=== PATIENT | female | born 1950 | race Caucasian/White ===

== ENCOUNTER 2017-10-24 15:42 | Emergency (ER) | payer MEDICARE, OTHER ==
[~2017-10-24] VITALS: Ht 165.1 cm; Wt 84.4 kg
[~2017-10-24 15:42] MED LIST: DIOVAN HCT 1601 EACH PO; LEVOFLOXACIN500 MG PO; METHYLPREDNISOLO4 MG PO; PROAIR HFA INH8.5 GM INH; SPIRIVA18 MCG INH
--- NOTE | 2017-10-24 17:12 | Diagnostic Imaging Report ---
PROCEDURE:X-RAY UNILATERAL RIBS WITH CHEST X-RAY COMPARISON:None. INDICATIONS:left mid rib pain friday, felt" pop" FINDINGS: BONES Normal mineralization. No acute , displaced fracture or dislocation. No lytic or expansile lesions. SOFT TISSUES:Negative. OTHER:Clear lungs. Cardiomediastinal silhouette is unremarkable. Right-sided catheter with distal tip projecting in the proximal SVC. CONCLUSION: No acute abnormalities. Jeb Zaidi M.D. Dictated by: Jeb Zaidi M.D. on 10/24/2017 at 17:16 Electronically approved by: Jeb Zaidi M.D. on 10/24/2017 at 17:16
[2017-10-24] MEDS ORDERED: KETOROLAC TROMETHAMINE 60 MG/2 ML VIAL IM ONE (17:45)
[2017-10-24 18:14] VITALS: BP 147/99
== END 2017-10-24 18:27 | disposition home or self-care (01) ==
LOC: ER 15:42
DX: R07.89 Other chest pain (principal); S29.011A Strain of muscle and tendon of front wall of thorax, initial encounter; X50.1XXA Overexertion from prolonged static or awkward postures, initial encounter; Y92.008 Other place in unspecified non-institutional (private) residence as the place of occurrence of the external cause; I10 Essential (primary) hypertension; J44.9 Chronic obstructive pulmonary disease, unspecified; J45.909 Unspecified asthma, uncomplicated
CPT/HCPCS: 71101; 99283; J1885

== ENCOUNTER 2018-12-17 14:34 | Emergency (ER) | payer MEDICARE ==
[~2018-12-17] VITALS: Ht 165.1 cm; Wt 84.4 kg
--- OUTSIDE RECORDS SUMMARY | 2018-12-17 14:37 | XMS REPORT | Clinical Summary ---
Author Author SEAN [facility]netSt[facility] CenterEc[facility] CenterLessonFaceSam[facility] Address Unknown Phone Unavailable Care Team Providers Care Cricket Coach Name Role Phone Jaime Kennedy PCP Unavailable Allergies No Known Allergies Medications End Date Status Medication Sig Dispensed Refills Start Date Active ALBUTEROL INHL Inhale 1 puff 0 by mouth via inhaler 2 (two) times daily Dose unknown per patient.. Active ergocalciferol (VITAMIN Take 50,000 0 D2) 50,000 unit capsule Units by mouth once a week. Active fluticasone (FLONASE) 50 1 spray by 0 mcg/actuation nasal spray Nasal route daily. Active mometasone-formoterol Inhale 1 puff 0 (DULERA) 200-5 by mouth via mcg/actuation inhaler inhaler 2 (two) times daily. Active TIOTROPIUM BROMIDE Inhale by 0 (SPIRIVA RESPIMAT INHL) mouth via inhaler daily Dose unknown per patient.. Active valsartan-hydrochlorothia Take 1 tablet 0 zide (DIOVAN-HCT) by mouth 160-12.5 mg per tablet daily. Active FEXOFENADINE HCL (RUTH Take 1 tablet 0 ORAL) by mouth daily Dose unknown per patient. . Active [id number] Inject 5,220 0 INHIBITOR (ZEMAIRA IV) mg intravenously once a week Takes every week on . Dose and frequency confirmed and verified with the patient. . Active Problems Problem Noted Date Difficult intravenous access 09/24/2016 Social History Date Tobacco Use Types Packs/Day Years Used Former Smoker Smokeless Tobacco: Never Used Comments: quit smoking 2012 Alcohol Use Drinks/Week oz/Week Comments Yes very rare Sex Assigned at Date Recorded Not on file Industry Job Start Date Occupation Not on file Not on file Not on file Travel End Travel History Travel Start No recent travel history available. Last Filed Vital Signs Not on file Plan of Treatment Not on file Implants Device Identifier Shelf Expiration Date Model / Serial / Lot Implanted Type Area Manufactur er 09/01/2020 [id number] / / [id number] Port Kt Sl Mri X-Prt 8fr Plas Catheter Right: Chest CR [id number] - [id number] Ports/Cent BARD:ACCES Implanted: Qty: 1 on 09/24/2016 by Adelaide Tyson MD Results Not on fileafter 12/16/2017 Insurance Payer Benefit Subscriber ID Type Phone Address Plan / Group [facility] x[facility] MEDICARE ADV Advance Directives For more information, please contact: [facility] [address] [place] [address] Date Inactivated Comments Code Status Date Activated 09/24/2016 1:24 PM Full Code 09/24/2016 8:28 AM This code status was determined by: Patient
[2018-12-17] MEDS ORDERED: SODIUM CHLORIDE 0.9% 1000ML 1,000 ML IV SCH (15:15)
[2018-12-17] MEDS ORDERED: ONDANSETRON HCL INJ 2MG/ML 2ML 2 MG/ML VIAL IV NR (15:30)
[2018-12-17 15:45] LABS: BASOPHILS % 0.8 % (0.0-1.0); EOSINOPHILS # (AUTO) 0.1 (0.0-0.4); EOSINOPHILS % 1.6 % (0.0-6.0); HEMATOCRIT 40.2 % (34.2-44.1); HEMOGLOBIN 13.6 g/dL (12.0-16.0); LYMPHOCYTES # (AUTO) 1.2 (1.0-3.2); LYMPHOCYTES % 24.1 % (18.0-39.1); MEAN CORPUSCULAR HEMOGLOBIN 32.2 pg (28-32); MEAN CORPUSCULAR HGB CONC 33.8 g/dL (31-35); MONOCYTES # (AUTO) 0.4 (0.2-0.8); MONOCYTES % 7.3 % (4.4-11.3); NEUTROPHILS # (AUTO) 3.3 (2.1-6.9); PLATELET COUNT 186 x10e3/uL (140-360); RED BLOOD COUNT 4.23 x10e6/uL (3.6-5.1); RED CELL DISTRIBUTION WIDTH 12.2 % (11.7-14.4)
[2018-12-17 15:58] LABS: ALANINE AMINOTRANSFERASE 9 IU/L (0-55); ALBUMIN 3.3 g/dL (3.5-5.0); ALBUMIN/GLOBULIN RATIO 1.1 (0.8-2.0); ALKALINE PHOSPHATASE 44 IU/L (40-150); ANION GAP 10.8 mmol/L (8-16); BLOOD UREA NITROGEN 21 mg/dL (7-26); BUN/CREATININE RATIO 25 (6-25); CALCIUM 9.2 mg/dL (8.4-10.2); CARBON DIOXIDE 28 mmol/L (22-29); CHLORIDE 102 mmol/L (98-107); CREATINE KINASE 53 IU/L (29-168); CREATININE, SERUM 0.85 mg/dL (0.57-1.11); EST GLOMERULAR FILTRATION RATE > 60 ML/MIN (60-); GLUCOSE 123 mg/dL (74-118); POTASSIUM 3.8 mmol/L (3.5-5.1); SODIUM 137 mmol/L (136-145)
[2018-12-17 16:33] LABS: BILIRUBIN,URINE NEGATIVE (NEGATIVE); CLARITY,URINE CLEAR (CLEAR); COLOR,URINE YELLOW (YELLOW); KETONES,URINE NEGATIVE (NEGATIVE); LEUKOCYTE ESTERASE ,URINE NEGATIVE (NEGATIVE); NITRITE,URINE NEGATIVE (NEGATIVE); PROTEIN,URINE DIPSTICK NEGATIVE (NEGATIVE); URINE UROBILINOGEN 0.2 mg/dL (0.2 - 1)
[2018-12-17 16:49] LABS: EPITHELIAL CELLS,URINE RARE /LPF
--- NOTE | 2018-12-17 17:42 | Diagnostic Imaging Report ---
CT of the abdomen and pelvis, with contrast, 12/17/2018. History: Mid abdominal pain. Comparison: None available. Technique: Multidetector CT scanning of the abdomen and pelvis was performed from the level of the lung bases to the inferior pubic rami after intravenous administration of contrast. Oral contrast was not given. Coronal and sagittal multiplanar reformations were obtained. RADIATION DOSE: Total DLP: 468 mGy*cm Dose modulation, iterative reconstruction, and/or weight based adjustment of the mA/kV was utilized to reduce the radiation dose to as low as reasonably achievable. Discussion: LUNG BASES: There is bibasilar scarring and emphysema. ABDOMEN: The gallbladder is absent. The liver, biliary tree, spleen, pancreas, adrenal glands, and kidneys are normal. The hepatic vein, portal vein, and splenic vein are patent. The abdominal aorta is within normal limits for size. Evaluation of bowel is limited without oral contrast. There is no bowel dilatation. There is no evidence of adenopathy or free fluid. PELVIS: The bladder is unremarkable. The uterus and adnexa are absent. There is no evidence of free fluid or adenopathy. Sutures present within the anterior abdominal wall. BONES AND SOFT TISSUES: Degenerative changes are present throughout the lumbar spine without evidence of lytic or sclerotic lesion. Mild anterior wedge deformity of T12 is noted, described on prior CT report from 05/08/2013, images were not available. IMPRESSION: No acute findings. Status post cholecystectomy and hysterectomy. Bibasilar emphysema and scarring are noted. Signed by: Erick Harrington on 12/17/2018 5:39 PM
[2018-12-17 18:05] VITALS: BP 128/77
[2018-12-17] MEDS ORDERED: SODIUM CHLORIDE 0.9% 50ML 50 ML ONE (21:37)
[2018-12-17] MEDS ORDERED: IOPAMIDOL 370 MG/ML 200 ML INFUS..BTL INJ ONE (21:37)
== END 2018-12-17 18:11 | disposition home or self-care (01) ==
LOC: ER 14:34
DX: R10.84 Generalized abdominal pain (principal); R11.2 Nausea with vomiting, unspecified; R19.7 Diarrhea, unspecified; I10 Essential (primary) hypertension; E11.9 Type 2 diabetes mellitus without complications; J44.9 Chronic obstructive pulmonary disease, unspecified
CPT/HCPCS: 36415; 74177; 80053; 81001; 82550; 82553; 83690; 84484; 85025; 93005; 99284; Q9967

== ENCOUNTER 2019-01-15 17:25 | Emergency (ER) | payer MEDICARE ==
[~2019-01-15] VITALS: Ht 165.1 cm; Wt 84.4 kg
--- OUTSIDE RECORDS SUMMARY | 2019-01-15 17:28 | XMS REPORT | Clinical Summary ---
Author Author SEAN GigaFin NetworksSt. [facility] FruitlandCloudVelocity [facility] CenterAperion BiologicsSkag[facility] Address Unknown Phone Unavailable Care Team Providers [facility] Consultant Name Role Phone Jaime Kennedy PCP Unavailable [...] daily Dose unknown per patient. . Active [id number] Inject 5,220 0 INHIBITOR (ZEMAIRA IV) mg [...] Lot Implanted Type Area Manufactur er 09/01/2020 [id number] / / [id number] Port Kt Sl Mri X-Prt 8fr Plas Catheter Right: Chest CR [id number] - [id number] Ports/Cent BARD:ACCES Implanted: Qty: 1 on 09/24/2016 by Adelaide Tyson MD Results Not on fileafter 01/14/2018 Insurance Payer Benefit Subscriber ID Type Phone Address Plan / Group [facility] x[facility]xx MEDICARE ADV Advance Directives For more information, please contact: [facility] [address] [place] [address] Date Inactivated Comments Code Status Date Activated 09/24/2016 1:24 PM Full Code 09/24/2016 8:28 AM This code status was determined by: Patient
[2019-01-15] MEDS ORDERED: SODIUM CHLORIDE 0.9% 1000ML 1,000 ML IV STA (17:36)
[2019-01-15 18:01] LABS: BASOPHILS # (AUTO) 0.1 (0.0-0.1); EOSINOPHILS # (AUTO) 0.1 (0.0-0.4); EOSINOPHILS % 1.9 % (0.0-6.0); HEMATOCRIT 42.4 % (34.2-44.1); HEMOGLOBIN 14.8 g/dL (12.0-16.0); LYMPHOCYTES # (AUTO) 1.7 (1.0-3.2); LYMPHOCYTES % 27.7 % (18.0-39.1); MEAN CORPUSCULAR HEMOGLOBIN 32.2 pg (28-32); MEAN CORPUSCULAR HGB CONC 34.9 g/dL (31-35); MEAN CORPUSCULAR VOLUME 92.2 fL (81-99); MONOCYTES # (AUTO) 0.5 (0.2-0.8); MONOCYTES % 7.4 % (4.4-11.3); NEUTROPHILS # (AUTO) 3.9 (2.1-6.9); NEUTROPHILS % 61.8 % (38.7-80.0); PLATELET COUNT 211 x10e3/uL (140-360)
[2019-01-15 18:21] LABS: ALBUMIN 3.5 g/dL (3.5-5.0); ALBUMIN/GLOBULIN RATIO 0.9 (0.8-2.0); ANION GAP 14.1 mmol/L (8-16); CALCIUM 9.3 mg/dL (8.4-10.2); CREATININE, SERUM 0.93 mg/dL (0.57-1.11); POTASSIUM 4.1 mmol/L (3.5-5.1)
--- NOTE | 2019-01-15 18:39 | Diagnostic Imaging Report ---
CT BRAIN WO HISTORY: 68-year-old female with dizziness and hypotension COMPARISON: None. TECHNIQUE: Noncontrast axial scans were obtained from skull base to the vertex. Coronal and sagittal reconstructions obtained from the axial data. One or more of the following dose reduction techniques were used: Automated exposure control, adjustment of the mA and/or kV according to patient size, and/or utilization of iterative reconstruction technique. DISCUSSION: Scalp/Skull: Unremarkable. Brain sulci: Appropriate for patient's age. Ventricles: Normal in size and configuration. No hydrocephalus. Extra-axial spaces: No masses or fluid collections. Parenchyma: Mild chronic small vessel ischemic changes with a few hypoattenuating foci in the deep white matter. No mass, hemorrhage, or large vascular territory acute infarct. Dural sinuses: No abnormal densities. Sellar/Suprasellar region: Intact. No masses. Skull base: Intact. Incidental findings: None. IMPRESSION: 1. No acute intracranial abnormalities. 2. Mild chronic small vessel ischemic changes. This preliminary report was issued by Dr. Brayden Warren M.D. neuroradiology fellow at 1638 hours on 01/15/2019. Signed by: DR Seymour Oliveira M.D. on 01/16/2019 1:30 AM
[2019-01-15 19:29] LABS: BILIRUBIN,URINE NEGATIVE (NEGATIVE); CLARITY,URINE SL CLOUDY (CLEAR); COLOR,URINE YELLOW (YELLOW); KETONES,URINE NEGATIVE (NEGATIVE); LEUKOCYTE ESTERASE ,URINE MODERATE (NEGATIVE); NITRITE,URINE NEGATIVE (NEGATIVE); PROTEIN,URINE DIPSTICK TRACE (NEGATIVE); URINE UROBILINOGEN 0.2 mg/dL (0.2 - 1)
--- NOTE | 2019-01-15 19:36 | Diagnostic Imaging Report ---
EXAMINATION: CHEST SINGLE (PORTABLE) INDICATION: ^ERMD ORDER ^[id number] ^1814 ^Y COMPARISON: CT chest 07/27/2014 and chest radiograph 05/13/2013 FINDINGS: AP view TUBES and LINES: Right subclavian central venous catheter with tip overlying the upper SVC. LUNGS: Lungs are well inflated. Lungs are clear. There is no evidence of pneumonia or pulmonary edema. PLEURA: No pleural effusion or pneumothorax. HEART AND MEDIASTINUM: The cardiomediastinal silhouette is unremarkable.. BONES AND SOFT TISSUES: No acute osseous lesion. Soft tissues are unremarkable. UPPER ABDOMEN: No free air under the diaphragm. IMPRESSION: Right subclavian central venous catheter with tip overlying the upper SVC, recommend advancement of at least 7 cm. No pneumothorax. Signed by: Dr. Velvet Cameron M.D. on 01/15/2019 7:32 PM
[2019-01-15 19:44] LABS: BACTERIA,URINE FEW /HPF; EPITHELIAL CELLS,URINE RARE /LPF
[2019-01-15 19:45] LABS: AMORPHOUS SEDIMENT,URINE FEW (FEW)
[2019-01-15 21:28] VITALS: BP 143/85
== END 2019-01-15 21:44 | disposition home or self-care (01) ==
LOC: ER 17:25
DX: R42 Dizziness and giddiness (principal); R53.1 Weakness; I95.1 Orthostatic hypotension
CPT/HCPCS: 36415; 70450; 71045; 80053; 81001; 82550; 82553; 84484; 85025; 93005; 99284; J7030